=== PATIENT | female | born 1990 | race Caucasian/White ===

== ENCOUNTER 2017-11-10 21:15 | Inpatient (IN) | payer OTHER ==
[2017-11-10] MEDS ORDERED: AMPICILLIN SODIUM 2 GM VIAL ONE (21:41)
[2017-11-10] MEDS ORDERED: AMPICILLIN - 2 GM in SODIUM CHLORIDE 100 ML IVPB ONE (22:00)
[2017-11-10 22:20] LABS: BASO % 0.7 % (0-2.0); HEMATOCRIT 32.6 % (32.4-45.2); HEMOGLOBIN 10.9 GM/dL (10.7-15.3); MCHC 33.5 g/dl (32.0-36.0); MEAN CELL VOLUME 86.4 fl (80-96); MEAN PLT VOLUME 8.9 fl (7.5-11.1); MONO % 7.3 % (3.8-10.2); PLATELET COUNT 190 K/MM3 (134-434); RBC 3.78 M/mm3 (3.60-5.2); RDW 13.3 % (11.6-15.6); WHITE BLOOD COUNT 10.1 K/mm3 (4.0-10.0)
[2017-11-10 22:30] VITALS: BMI 30.2
[2017-11-10] MEDS ORDERED: AMPICILLIN - 1 GM in SODIUM CHLORIDE 100 ML IVPB SCH (22:30)
[2017-11-10] MEDS ORDERED: DEXTROSE 5%-LACTATED RINGERS 1,000 ML IV SCH (22:30)
[2017-11-10 22:35] LABS: INR 0.88 (0.82-1.09)
[2017-11-10 22:38] LABS: ACTIVATED PTT 21.4 SECONDS (26.9-34.4)
[2017-11-10 22:41] LABS: ANION GAP 6 (8-16); BLOOD UREA NITROGEN 11 mg/dL (7-18); CALCIUM 7.8 mg/dL (8.5-10.1); CHLORIDE 106 mmol/L (98-107); CO2 25 mmol/L (21-32); CREATININE 0.5 mg/dL (0.55-1.02); GLUCOSE,RANDOM 84 mg/dL (74-106); POTASSIUM 3.9 mmol/L (3.5-5.1); SODIUM 137 mmol/L (136-145)
--- NOTE | 2017-11-11 00:04 | HP ---
Admitting History and Physical - Admission Chief Complaint: srom at 9pm, History Source: Patient Limitations to Obtaining History: No Limitations - Past Medical History HOG WORKER: No: Alzheimer's, CVA, Dementia, Migraine, Multiple Sclerosis, Peripheral Neuropathy, Parkinson's, Seizure, Syncope, TIA, Vertigo, Other Cardiovascular: No: AFIB, Aneurysm, Aortic Insufficiency, Aortic Stenosis, CAD, CHF, Deep Vein Thrombosis, HTN, Hyperlipdemia, [place], Mitral Insufficiency, Mitral Stenosis, Murmur, Pulmonary Hypertension, Other Pulmonary: No: Asthma, Bronchitis, Cancer, COPD, O2 Dependent, Pneumonia, Previously Intubated, Pulmonary Embolus, Pulmonary Fibrosis, Sleep Apnea, Other Gastrointestinal: No: Ascites, Cancer, Constipation, Crohn's Disease, Diverticulitis, Diverticulosis, Esophageal Varices, Gastritis, GERD, GI Bleed, Hemorrhoids, Hiatal Hernia, Inflamatory Bowel Disease, Irritable Bowel Disease, Pancreatitis, Peptic Ulcer Disease, Ulcerative Colitis, Other Hepatobiliary: No: Cirrhosis, Cholelithiasis, Cholecystitis, Choledocholithiasis , Hepatitis A, Hepatitis B, Hepatitis C, Other Renal/: No: Renal Failure, Renal Inusuff, BPH, Cancer, Hematuria, Hemodialysis , Neurogenic Bladder, Renal Calculi, UTI, Other Reproductive: No: Ectopic , Endometriosis, Fibroids, PID, Polycystic Ovary Syndrome, Postmenopausal, Other ...: 4 ...Para: 3 Heme/Onc: No: Anemia, B12 Deficiency, Bleeding Disorder, Cancer, Current Chemotherapy, Current Radiation Therapy, Hemochromatosis, Hypercoaguable State, Myeloproliferative Synd, Sickle Cell Disease, Sickle Cell Trait, Thrombocytopenia, Other Infectious Disease: No: AIDS, C-Diff, Herpes Zoster, HIV, MRSA, STD's, Tuberculosis, VREF, Other Psych: No: Addictions, Anxiety, Bipolar, Depression, Panic, Psychosis, Schizophrenia, Other Musculoskeletal: No: Bursitis, Chronic low back pain, Hemiparesis, Hemiplegia, Osteoarthritis, Paraplegia, Other Rheumatology: No: Fibromyalgia, Gout, Lupus, Rheumatoid Arthritis, Sarcoidosis, Vasculitis, Other ENT: No: Allergic Rhinitis, Sinusitis, Other Endocrine: No: [place]'s Disease, [place]'s Disease, Diabetes Insipidus, Diabetes Mellitus, Hyperparathyroidism, Hyperthyroidism, Hypothyroidism, Osteopenia, SIADH, Other Dermatology: No: Basal Cell, Cellulitis, Eczema, Melanoma, Psoriasis, Squamous Cell, Other - Past Surgical History Past Surgical History: No: None, AAA Repair, AICD, Amputation, Appendectomy, Arthrosocopy, AV Fistula/Graft, Bariatric Surgery, Breast Biopsy, Bypass, CABG, Carotid Endarterectomy, Cataract Removal, Cholecystectomy, Colectomy, Colonoscopy, Colostomy, Craniotomy, , Cystectomy, Hernia Repair, Hysterectomy, Ileal Conduit, Ileosotomy, Joint Replacement, Kidney Transplant, Laminectomy, Liver Transplant, Mastectomy, Nephrectomy, Oopherectomy, Orchiectomy, Permanent Pacemaker, Prostatectomy, Splenectomy, Stent, Thoracotomy , TURP, Tonsillectomy, Tubal Ligation, Upper Endoscopy, Valve Replacement, Vasectomy, Vein Stripping/Ligation - Smoking History Smoking history: Never smoked Have you smoked in the past 12 months: No - Alcohol/Substance Use Hx Alcohol Use: No History of Substance Use: denies: None, Cocaine, Heroin, Marijuana, Prescription , Tranquilizers - Social History Usual Living Arrangement: No: Alone, With Spouse, With Parent, With Significant Other, With Child, Assisted Living, Care Home, Other Home Medications - Allergies Allergies/Adverse Reactions: Allergies Allergy/AdvReac Type Severity Reaction Status Date / Time No Known Allergies Allergy Verified 11/10/17 23:25 - Home Medications Home Medications: Ambulatory Orders Pnv No.95/Ferrous Fum/Folic AC [ Vitamin Tablet] 1 each PO DAILY Review of Systems - Review of Systems Constitutional: reports: No Symptoms Eyes: reports: No Symptoms HENT: reports: No Symptoms Neck: reports: No Symptoms Cardiovascular: reports: No Symptoms Respiratory: reports: No Symptoms Gastrointestinal: reports: No Symptoms Genitourinary: reports: No Symptoms Breasts: reports: No Symptoms Reported Musculoskeletal: reports: No Symptoms Integumentary: reports: No Symptoms Neurological: reports: No Symptoms Endocrine: reports: No Symptoms Hematology/Lymphatic: reports: No Symptoms Psychiatric: reports: No Symptoms Physical Examination Vital Signs: Vital Signs Temperature 98.2 F 11/10/17 23:01 Pulse Rate 69 11/10/17 22:56 Respiratory Rate 20 11/10/17 22:56 Blood Pressure 129/72 11/10/17 22:56 O2 Sat by Pulse Oximetry (%) Constitutional: Yes: Well Nourished Eyes: Yes: WNL HENT: Yes: WNL Neck: Yes: WNL Cardiovascular: Yes: WNL Respiratory: Yes: WNL Gastrointestinal: Yes: WNL ...Rectal Exam: Yes: WNL Renal/: Yes: WNL (4cm/-3 fht-150) Breast(s): Yes: WNL Musculoskeletal: Yes: WNL Extremities: Yes: WNL Integumentary: Yes: WNL Neurological: Yes: WNL ...Motor Strength: WNL Psychiatric: Yes: WNL Labs: CBC, BMP 11/10/17 21:50 11/10/17 21:50 Assessment/Plan admit labs gbs pos pit augmentation
[2017-11-11] MEDS ORDERED: ELECTROLYTE-148 SOLN 1,000 ML IV SCH (00:15)
[2017-11-11] MEDS ORDERED: OXYTOCIN 30 UNITS in 0.9% NS 30 UNIT/500 ML INFUS.BAG IVPB SCH (00:30)
[2017-11-11] MEDS ORDERED: PROMETHAZINE HCL 25 MG/1 ML VIAL ONE (01:20)
[2017-11-11] MEDS ORDERED: BUTORPHANOL TARTRATE 1 MG/ML VIAL ONE ×2 (01:20)
[2017-11-11] MEDS ORDERED: AMPICILLIN SODIUM 1 GM VIAL ONE (01:20)
[2017-11-11] MEDS ORDERED: BUTORPHANOL TARTRATE 1 MG/ML VIAL IVPB ONE (01:30)
[2017-11-11] MEDS ORDERED: PROMETHAZINE HCL 25 MG/1 ML VIAL IVPB ONE (01:30)
[2017-11-11 01:56] LABS: COCAINE, UR NEGATIVE ng/ml (CUTOFF=300); METHADONE, UR NEGATIVE ng/ml (CUTOFF=300); OPIATES, URI NEGATIVE ng/ml (CUTOFF=300); PHENCYCLIDINE,URINE NEGATIVE ng/ml (CUTOFF=25); URINE AMPHETAMINES NEGATIVE ng/ml (CUTOFF=500); URINE BARBITURATES NEGATIVE ng/ml (CUTOFF=200); URINE BENZODIAZEPINES NEGATIVE ng/ml (CUTOFF=200)
[2017-11-11] MEDS ORDERED: AMPICILLIN - 1 GM in SODIUM CHLORIDE 100 ML IVPB SCH (02:00)
[2017-11-11] MEDS ORDERED: OXYTOCIN 20 UNITS in 0.9% NS 20 UNIT/1,000 ML INFUS.BAG IV ONE (02:34)
[2017-11-11] MEDS ORDERED: METHYLERGONOVINE MALEATE 0.2 MG/1 ML AMP IM PRN (02:52)
[2017-11-11] MEDS ORDERED: WITCH HAZEL 50% (TUCKS) 40 PAD/JAR PAD TP PRN (02:52)
[2017-11-11] MEDS ORDERED: BISACODYL 10 MG SUPP.RECT RC PRN (02:52)
[2017-11-11] MEDS ORDERED: BENZOCAINE 28 GM HEMORRHOIDAL OINTMENT TP PRN (02:52)
[2017-11-11] MEDS ORDERED: BENZOCAINE 20% 57 GM BOTTLE TP PRN (02:52)
--- NOTE | 2017-11-11 02:58 | PN ---
Delivery - Delivery EBL (cc): 300 Delivery, Single - Stages of Labor Time of Delivery: 02:46 Placenta: Yes: Spontaneous - Condition of Infant Infant Gender: Male Position: Left - Feeding Plan Initial Plan: Elected not to breastfeed exclusively throughout hospitalization Remarks - Remarks Remarks: no tears no lac
[2017-11-11] MEDS ORDERED: OXYTOCIN 20 UNITS in 0.9% NS 20 UNIT/1,000 ML INFUS.BAG IV SCH (03:00)
[2017-11-11] MEDS ORDERED: D5W-LR W/ 20 UNITS OXYTOCIN 20 UNIT/1,000 ML INFUS.BAG IV SCH (03:00)
[2017-11-11] MEDS: IBUPROFEN 600 MG TABLET (FP) PO PRN ×3 (07:41→20:54)
[2017-11-11] MEDS: ACETAMINOPHEN 325 MG TABLET (FP) PO PRN ×3 (07:41→20:54)
--- NOTE | 2017-11-12 07:26 | PN ---
Post Progress Note - Subjective Subjective: no complains Post Day: 1 Type of Delivery: Vital Signs: Vital Signs Temperature 97.8 F 11/12/17 02:00 Pulse Rate 58 L 11/12/17 02:00 Respiratory Rate 18 11/12/17 02:00 Blood Pressure 107/67 11/12/17 02:00 O2 Sat by Pulse Oximetry (%) 100 11/11/17 04:00 Breast Exam: Yes: Soft, Other (bf). No: Engorged Uterus: Yes: Fundus Firm, Fundus below umbilicus Lochia: Yes: Rubra Lochia, amount: Moderate Extremities: Yes: Calves non-tender Perineum: Yes: Intact, Laceration (healing) Activity: Ambulating - Labs Labs: CBC WBC 10.1 K/mm3 (4.0-10.0) H 11/10/17 21:50 RBC 3.78 M/mm3 (3.60-5.2) 11/10/17 21:50 Hgb 10.9 GM/dL (10.7-15.3) 11/10/17 21:50 Hct 32.6 % (32.4-45.2) 11/10/17 21:50 MCV 86.4 fl (80-96) 11/10/17 21:50 MCH 29.0 pg (25.7-33.7) 11/10/17 21:50 MCHC 33.5 g/dl (32.0-36.0) 11/10/17 21:50 RDW 13.3 % (11.6-15.6) 11/10/17 21:50 Plt Count 190 K/MM3 (134-434) 11/10/17 21:50 MPV 8.9 fl (7.5-11.1) 11/10/17 21:50 Neutrophils % 66.0 % (42.8-82.8) 11/10/17 21:50 Lymphocytes % 23.0 % (8-40) 11/10/17 21:50 Monocytes % 7.3 % (3.8-10.2) 11/10/17 21:50 Eosinophils % 3.0 % (0-4.5) 11/10/17 21:50 Basophils % 0.7 % (0-2.0) 11/10/17 21:50 Assessment/Plan stable. plan cbc today. discharge tomorrow.
[2017-11-12 08:43] LABS: BASO % 0.2 % (0-2.0); EOS % 4.5 % (0-4.5); HEMATOCRIT 31.6 % (32.4-45.2); HEMOGLOBIN 10.4 GM/dL (10.7-15.3); LYMPH % 31.2 % (8-40); MCH 28.6 pg (25.7-33.7); MCHC 32.8 g/dl (32.0-36.0); MEAN CELL VOLUME 87.1 fl (80-96); MEAN PLT VOLUME 7.9 fl (7.5-11.1); MONO % 4.7 % (3.8-10.2); NEUT % 59.4 % (42.8-82.8); PLATELET COUNT 174 K/MM3 (134-434); RBC 3.63 M/mm3 (3.60-5.2); RDW 13.3 % (11.6-15.6); WHITE BLOOD COUNT 10.3 K/mm3 (4.0-10.0)
[2017-11-12] MEDS: IBUPROFEN 600 MG TABLET (FP) PO PRN (21:09)
[2017-11-12] MEDS ORDERED: SENNOSIDES/DOCUSATE COMBO (SENNA PLUS) TABLET (UD) PO PRN (22:00)
[2017-11-13 08:36] VITALS: BP 102/63; PULSE 59; TEMP 98.7
--- NOTE | 2017-11-13 09:33 | PN ---
Post Progress Note - Subjective Subjective: asymptomatic Post Day: 2 Type of Delivery: Vital Signs: Vital Signs Temperature 98.7 F 11/13/17 08:15 Pulse Rate 59 L 11/13/17 08:15 Respiratory Rate 20 11/13/17 08:15 Blood Pressure 102/63 11/13/17 08:15 O2 Sat by Pulse Oximetry (%) 100 11/11/17 04:00 Breast Exam: Yes: Soft, Other (pumping milk , in NICU ). No: Engorged Uterus: Yes: Fundus Firm, Fundus below umbilicus, Non-tender Lochia: Yes: Rubra Lochia, amount: Moderate Extremities: Yes: Calves non-tender Perineum: Yes: Intact Activity: Ambulating - Labs Labs: CBC WBC 10.3 K/mm3 (4.0-10.0) H 11/12/17 07:45 RBC 3.63 M/mm3 (3.60-5.2) 11/12/17 07:45 Hgb 10.4 GM/dL (10.7-15.3) L 11/12/17 07:45 Hct 31.6 % (32.4-45.2) L 11/12/17 07:45 MCV 87.1 fl (80-96) 11/12/17 07:45 MCH 28.6 pg (25.7-33.7) 11/12/17 07:45 MCHC 32.8 g/dl (32.0-36.0) 11/12/17 07:45 RDW 13.3 % (11.6-15.6) 11/12/17 07:45 Plt Count 174 K/MM3 (134-434) 11/12/17 07:45 MPV 7.9 fl (7.5-11.1) D 11/12/17 07:45 Neutrophils % 59.4 % (42.8-82.8) 11/12/17 07:45 Lymphocytes % 31.2 % (8-40) D 11/12/17 07:45 Monocytes % 4.7 % (3.8-10.2) 11/12/17 07:45 Eosinophils % 4.5 % (0-4.5) 11/12/17 07:45 Basophils % 0.2 % (0-2.0) 11/12/17 07:45 Assessment/Plan stable. discharge today
== END 2017-11-13 15:30 | disposition home or self-care (01) | DRG 560 ==
LOC: JLDR 21:15 → J3W 11-11 04:40
PROVIDERS: ADMIT Obstetrics & Gynecology; ATTEND Obstetrics & Gynecology
PROC: 10E0XZZ Delivery of Products of Conception, External Approach (ICD-10-PCS; principal; 2017-11-13)
DX: O48.0 Post-term pregnancy (principal); Z3A.40 40 weeks gestation of pregnancy; Z37.0 Single live birth
CPT/HCPCS: 36415; 59409; 80048; 80307; 85025; 85610; 85730; 86593; 86850; 86900; 86901; 87389